=== PATIENT | female | born 1955 | race Caucasian/White ===

== ENCOUNTER 2016-06-24 15:04 | Emergency (ER) | payer OTHER ==
[~2016-06-24] VITALS: Ht 165.1 cm; Wt 84.0 kg
[2016-06-24 15:05] VITALS: BP 178/88; PULSE 74; RESP 24; O2SAT 97
--- NOTE | 2016-06-24 15:25 | ED.REPORT ---
HPI-Abd Pain F 40 and Over Date of Service Jun 24, 2016 ED Provider: Nayan Dodson MD The patient is a 61 year old female who presents to the ED due to lower abdominal pain and "pressure" for the past 3 days. She is 3 days post-op from laparoscopic hysterectomy done at [facility]. She has had no bowel movement since the surgery. Associated symptoms include nausea and rectal pain. She tried 2 doses of OTC laxative suppository with no results. Her last dose of oxycodone was 5mg on Saturday morning. Pt took Ibuprofen this morning. She denies fever. Pt is borderline diabetic. Nursing Notes Stated Complaint: ABDOMINAL PAIN Chief Complaint: Female Abdominal Pain Nursing Notes Reviewed: Yes Allergies: Coded Allergies: High Fructose [place] Syrup (Verified Allergy, Unknown, 06/24/16) General Time Seen by MD: 15:24 Chief Complaint Abdominal pain Hx Obtained From: Patient Arrived By: Ambulance Sudden in Onset?: Yes Onset Occurred: 3 days ago Symptom Duration: Since onset Location: : Abdomen lower Quality: Painful, Pressure Severity: Current: Moderate Recent Healthcare: Recent hospitalization, Previous surgery Similar Sx Previous: Yes Past Medical History Past Medical History arthritis borderline diabetic Past Surgical History Reports: Cholecystectomy, Hysterectomy (06/21/16) Social History Other Social History: Good social support, , Local resident Ambulatory Status Independent Review of Systems Constitutional: Denies: Fever GI: Reports: Abdominal pain, Constipation, Nausea Complete sys rev & neg: except as marked. Physical Exam Physical Exam Notes: Vital Signs Vital Signs (First) Date Time Temp Pulse Resp B/P Pulse Ox O2 Delivery O2 Flow Rate FiO2 06/24/16 15:05 36.9 74 24 178/88 97 Room Air Initial VS: Reviewed Head / Eyes: Atraumatic, Normocephalic, PERRL ENT: Mucous membranes moist, Conjunctiva normal, No scleral icterus Extremities: Vascular intact, Neuro intact, No swelling, No tenderness Skin: Warm, Dry, No cyanosis General/Constitutional: Awake, Cooperative Respiratory / Chest: Atraumatic, Breath sounds NL, No rales, No rhonchi, No wheezing Cardiovascular: Heart rate NL, Regular rhythm, Heart sounds NL, No gallop, No murmurs, No rubs Bowel Sounds / Distention: Positive: Bowel sounds absent lower abdomen tender incision healing well post-hysterectomy Back: Atraumatic, Inspection NL, No CVA tenderness Female Genitourinary: External genitalia NL Rectum / Perineum: No gross blood Fecal impaction which was broken up Poorl tolerated by patient. Interpretation & Diagnostics Lab Results Interpretation Result Diagram: 06/24/16 1520 06/24/16 1520 Test 06/24/16 15:20 06/24/16 16:06 White Blood Count 9.5th/mm3 (3.8-10.1) Red Blood Count 4.66mil/mm3 (3.90-5.20) Hemoglobin 15.0g/dL (12.0-15.6) Hematocrit 42.6% (35.0-46.0) Mean Corpuscular Volume 91.4fL (81-100) Mean Corpuscular Hemoglobin 32.2pg (27.0-35.0) Mean Corpuscular Hemoglobin Concent 35.2% (32.0-37.0) Red Cell Distribution Width 11.6% (12.3-15.4) Platelet Count 268bil/L (150-400) Neutrophils (%) (Auto) 75.8% (40-74) Lymphocytes (%) (Auto) 17.4% (14-46) Monocytes (%) (Auto) 5.9% (4-12) Eosinophils (%) (Auto) 0.5% (0-5) Basophils (%) (Auto) 0.2% (0-3) Hold Purple Top Tube Received (Received) Hold Blue Top Tube Received (Received) Sodium Level 135mEq/L (134-144) Potassium Level 3.9mEq/L (3.5-5.2) Chloride Level 94mEq/L (97-108) Carbon Dioxide Level 20mmol/L (18-29) Blood Urea Nitrogen 13mg/dL (6-24) Creatinine 0.52mg/dL (0.57-1.00) Estimat Glomerular Filtration Rate 173mL/min (>59) Glucose Level 255mg/dL (60-99) Calcium Level 9.5mg/dL (8.5-10.1) Magnesium Level 1.7mg/dL (1.6-2.6) Total Bilirubin 0.6mg/dL (0.0-1.2) Aspartate Amino Transf (AST/SGOT) 68U/L (0-50) Alanine Aminotransferase (ALT/SGPT) 80U/L (0-32) Alkaline Phosphatase 98U/L (25-165) Total Protein 7.8g/dL (6.4-8.4) Albumin 4.5g/dL (3.4-5.0) Hold Red Top Tube Received (Received) Hold [place] Top Tube Received (Received) Urine Color Yellow (YELLOW) Urine Appearance Clear (CLEAR,HAZY) Urine pH 6.5 (5.0-8.0) Urine Specific [place] 1.010 (1.003-1.035) Urine Protein Negativemg/dL (NEG,TRACE) Urine Glucose (UA) 1000mg/dL (NEGATIVE) Urine Ketones 40mg/dL (NEGATIVE) Urine Occult Blood Moderate (NEGATIVE) Urine Nitrite Negative (NEGATIVE) Urine Bilirubin Negative (NEGATIVE) Urine Ictotest Negative (Negative) Urine Urobilinogen Normalmg/dL (NORMAL) Urine Leukocyte Esterase Negative (NEGATIVE) Urine RBC 0-2/hpf (0-2) Urine WBC 0-5/hpf (0-5) Urine Epithelial Cells None/hpf (NONE-MOD) Urine Crystals None seen (NONE SEEN) Urine Bacteria None/hpf (NONE-FEW) Urine Hyaline Casts None/lpf (NONE) Urine Granular Casts None seen (NONE SEEN) Urine Waxy Casts None seen (NONE SEEN) Urine Red Blood Cell Casts None seen (NONE SEEN) Urine White Blood Cell Casts None seen (NONE SEEN) Urine Mucus None seen (None Seen) Urine Trichomonas None seen (NONE SEEN) Urine Yeast None (NONE SEEN) Urinalysis Comment None Urine Culture Reflexed Not indicated CT Abd / Pelvis Interpretation IMPRESSION: 1. Absence of uterus consistent with hysterectomy. No evidence for postoperative abscess. 2. Moderate amount stool in colon. 3. Hepatic steatosis. 4. Postsurgical changes in right flank. 5. Small fat-containing umbilical hernia. There is mild stranding and soft tissue thickening in umbilicus, which could be related to the umbilical port. Recommend clinical correlation. Dictated by: Maria Ines Harrington M.D. on 06/24/2016 at 17:36 Approved by: Maria Ines Harrington M.D. on 06/24/2016 at 17:42 Study type: Abdominal CT no contrast Interpretation / Wet Read by: Interpret - Radiologist Re-Eval/Medical Decision Re-Evaluation/Progress #1: Time of Eval: 18:00 Re-Evaluation/Progress Note: Rectal exam performed (notes in PE) Re-Evaluation/Progress #2: Re-Evaluation/Progress Note: Surgi-lube enema, initally no results, later pt had large BM and reported symptoms resolved. Counseled Regarding: Diagnosis, Lab results, Need for follow-up, When/why to return to ED Discharge & Departure Primary Impression: Constipation Constipation type: unspecified constipation type Qualified Code: K59.00 - Constipation, unspecified Disposition: Home Discharge Condition All VS Reviewed: Yes Condition: Stable Additional Instructions: Emergency Department evaluation included interview, examination, labs, EKG, and abdominal CT. There were no dangerous causes for your symptoms. 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 Stay away from the opiate pain medication as this will make you constipated. Use Tylenol and Ibuprofen for pain as needed. Keep well hydrated and drink plenty of fluids. Plan to follow up with your meat specialist as planned. Return to the Emergency Department for any new or worsening symptoms. I hope you feel better soon! Referrals: [facility] Scribe Attestation Portion of this note were transcribed by Jennifer Kaplan. I, Dr. Dodson, personally performed the history, physical exam, and medical decision-making: I reviewed and confirmed the accuracy for the information in the transcribed note. Signed by: alicia Sousa, 06/24/16 1700 copies to: [facility] Nayan Dodson MD Jun 24, 2016 15:25 Jennifer Kaplan Jun 24, 2016 15:59
[2016-06-24] MEDS ORDERED: 0.9% Sodium Chloride 1,000 ML IV ONE (15:50)
[2016-06-24] MEDS ORDERED: Ondansetron 2 mg/mL 2 mL Inj IVPUSH ONE (15:50)
[2016-06-24 15:59] VITALS: BP 156/71; PULSE 80; RESP 16; O2SAT 95
[2016-06-24 16:13] LABS: BASOPHILS % (AUTO) 0.2 % (0-3); EOSINOPHILS % (AUTO) 0.5 % (0-5); MONOCYTES % (AUTO) 5.9 % (4-12); Mean Corpuscular Hemoglobin 32.2 pg (27.0-35.0); Mean Corpuscular Volume 91.4 fL (81-100); NEUTROPHILS % (AUTO) 75.8 % (40-74); Platelet Count 268 bil/L (150-400)
[2016-06-24 16:21] LABS: Magnesium 1.7 mg/dL (1.6-2.6)
[2016-06-24 16:29] LABS: APPEARANCE,URINE CLEAR (CLEAR,HAZY); COLOR,URINE YELLOW (YELLOW)
[2016-06-24 16:30] LABS: OCCULT BLOOD,URINE MODERATE (NEGATIVE); PH,URINE 6.5 (5.0-8.0); UROBILINOGEN,URINE NORMAL (NORMAL)
[2016-06-24 16:51] LABS: ICTOTEST,URINE NEGATIVE (Negative)
--- NOTE | 2016-06-24 17:44 | DRSVH ---
PROCEDURE: CT ABDOMEN AND PELVIS WITH CONTRAST ([id number]) INDICATIONS: 61-year-old woman with recent lap hysterectomy, abd pain, no BS. TECHNIQUE: After the administration of intravenous contrast, 5 mm thick sections acquired from the diaphragm to the symphysis. 5 mm coronal and sagittal reformats were acquired. For radiation dose reduction, the following was used: automated exposure control, adjustment of mA and/or kV according to patient siz e. COMPARISON: None. FINDINGS: Image quality: Excellent. ABDOMEN: Lung bases: Lung bases are clear. Heart size is normal. Solid organs: There is diffuse hepatic fatty infiltration. Liver and spleen are normal in size and e nhancement. Gallbladder is surgically absent. Biliary system is non dilated. Pancreas enhances nor el. No adrenal nodules. Kidneys demonstrate normal size and enhancement, without hydronephrosis. Peritoneum and bowel: Bowel loops demonstrate normal wall thickness and caliber. Appendix is normal . No free fluid or air. Nodes and vessels: No retroperitoneal or mesenteric adenopathy by size criteria. Aorta and inferior vena cava are normal in size. Miscellaneous: Small fat-containing umbilical hernia is noted. There is mild stranding and soft tissu e thickening in the umbilicus. Subcutaneous gas is noted in the right flank, likely related to recen t surgery. PELVIS: Genitourinary: Bladder wall thickness is normal. Uterus is absent. No free pelvic fluid. No organiz ed fluid collections. Miscellaneous: No inguinal hernias or adenopathy. Bones: No suspicious bony lesions. No vertebral body compression fractures. IMPRESSION: 1. Absence of uterus consistent with hysterectomy. No evidence for postoperative abscess. 2. Moderate amount stool in colon. 3. Hepatic steatosis. 4. Postsurgical changes in right flank. 5. Small fat-containing umbilical hernia. There is mild stranding and soft tissue thickening in umbil icus, which could be related to the umbilical port. Recommend clinical correlation. Dictated by: Maria Ines Harrington M.D. on 06/24/2016 at 17:36 Approved by: Maria Ines Harrington M.D. on 06/24/2016 at 17:42
[2016-06-24 18:35] VITALS: BP 140/59; PULSE 80; RESP 17; O2SAT 96
[2016-06-24 19:35] VITALS: BP 138/62; PULSE 72; RESP 18; O2SAT 97
== END 2016-06-24 19:37 | disposition home or self-care (01) ==
LOC: SED 15:04
DX: K59.00 Constipation, unspecified (principal); Z90.49 Acquired absence of other specified parts of digestive tract; Z90.710 Acquired absence of both cervix and uterus
CPT/HCPCS: 74177; 80053; 81000; 83735; 85025; 96361; 96374; 99285; J2405; J7030; Q9967